=== PATIENT | female | born 1965 | race Two or more races ===

== ENCOUNTER 2018-04-10 10:14 | Emergency (ER) | payer OTHER ==
[~2018-04-10] VITALS: Ht 154.9 cm; Wt 76.2 kg
[~2018-04-10 10:14] MED LIST: PERCOCET 5/3251 TAB PO
== END 2018-04-10 11:47 | disposition home or self-care (01) ==
LOC: ER 10:14
DX: M54.5 Low back pain (principal)

== ENCOUNTER → 2019-04-06 | Emergency (ER) | payer OTHER ==
[~2019-04-06] VITALS: Ht 154.9 cm; Wt 85.7 kg
[~2019-04-06] MED LIST changes: +ABANEU-SL TABL1 EACH; +NEURONTIN300 MG; +SINGULAIR10 MG; +VALACYCLOVIR1000 MG
== END | disposition home or self-care (01) ==
LOC: ER 18:14
DX: B02.9 Zoster without complications (principal)

== ENCOUNTER 2019-04-15 08:49 | Outpatient (CLI) | payer OTHER | END 2019-04-15 09:17 | disposition home or self-care (01) | LOC: LAB 08:49 | DX: E03.8 Other specified hypothyroidism (principal); A64 Unspecified sexually transmitted disease; E78.49 Other hyperlipidemia; E11.9 Type 2 diabetes mellitus without complications; I10 Essential (primary) hypertension ==

== ENCOUNTER 2019-04-16 11:12 | Outpatient (CLI) | payer OTHER | END 2019-04-16 15:00 | disposition home or self-care (01) | LOC: LAB 11:12 | DX: E03.8 Other specified hypothyroidism (principal); E11.9 Type 2 diabetes mellitus without complications; E78.2 Mixed hyperlipidemia; I10 Essential (primary) hypertension ==

== ENCOUNTER → 2019-05-31 08:47 | Outpatient (CLI) | payer OTHER | END | disposition home or self-care (01) | LOC: LAB 08:47 | DX: G31.84 Mild cognitive impairment of uncertain or unknown etiology (principal); E03.8 Other specified hypothyroidism; E53.8 Deficiency of other specified B group vitamins ==

== ENCOUNTER 2020-04-13 14:02 | Outpatient (CLI) | payer OTHER | END 2020-04-13 15:00 | disposition home or self-care (01) | LOC: LAB 14:02 | DX: J11.1 Influenza due to unidentified influenza virus with other respiratory manifestations (principal); Z20.828 Contact with and (suspected) exposure to other viral communicable diseases; R21 Rash and other nonspecific skin eruption; L98.8 Other specified disorders of the skin and subcutaneous tissue; R53.81 Other malaise ==

== ENCOUNTER 2020-04-14 15:30 | Outpatient (CLI) | payer OTHER | END 2020-04-14 18:00 | disposition home or self-care (01) | LOC: RAD 15:30 | DX: M67.431 Ganglion, right wrist (principal); R22.33 Localized swelling, mass and lump, upper limb, bilateral ==

== ENCOUNTER → 2021-08-26 | Outpatient (CLI) | payer OTHER | END | disposition home or self-care (01) | LOC: NUCLEAR 10:28 | PROVIDERS: ATTEND Internal Medicine | DX: G30.0 Alzheimer's disease with early onset (principal) | CPT/HCPCS: 78803; A9557 ==